=== PATIENT | male | born 1990 | race Caucasian/White ===

== ENCOUNTER 2017-06-13 12:58 | Emergency (ER) | payer SELFPAY ==
[2017-06-13] MEDS ORDERED: HYDROmorphone 1 MG/ML Syringe IM ONE (13:30)
[2017-06-13] MEDS ORDERED: Ondansetron 4 MG Tab.DIS PO ONE (13:30)
--- NOTE | 2017-06-13 13:46 | EDM.PDOC ---
ED HPI GENERAL MEDICAL PROBLEM - General Chief Complaint: Burn Stated Complaint: PT IS BEING SEEN FOR FROSTBITE Time Seen by Provider: 06/13/17 13:00 Source of Information: Reports: Patient History Limitations: Reports: No Limitations - History of Present Illness INITIAL COMMENTS - FREE TEXT/NARRATIVE: History of present illness: []Patient was walking in the snow in socks last night for approximately 20 minutes. Today he has developed blisters on the bottoms and tops of his feet. Review of systems: As per history of present illness and below otherwise all systems reviewed and negative. Past medical history: As per history of present illness and as reviewed below otherwise noncontributory. Surgical history: As per history of present illness and as reviewed below otherwise noncontributory. Social history: No reported history of drug or alcohol abuse. Family history: As per history of present illness and as reviewed below otherwise noncontributory. Physical exam: General: Well developed, well nourished in NAD HEENT: Atraumatic, normocephalic, pupils reactive, negative for conjunctival pallor or scleral icterus, mucous membranes moist, throat clear, neck supple, nontender, trachea midline. Lungs: Clear to auscultation, breath sounds equal bilaterally, chest nontender. Heart: S1S2, regular, negative for clicks, rubs, or JVD. Abdomen: Soft, nondistended, nontender. Negative for masses or hepatosplenomegaly. Negative for costovertebral tenderness. Pelvis: Stable nontender. Genitourinary: Deferred. Rectal: Deferred. Extremities: Bilateral feet have large intact blisters on the plantar surfaces. the right foot has a large dorsal blister and blisters on the fourth and fifth toe, the left foot has a strong the second toe. Distal capillary refill intact. Sensations intact.Neurovascular unremarkable. Neuro: Awake, alert, oriented. Cranial nerves II through XII unremarkable. Cerebellum unremarkable. Motor and sensory unremarkable throughout. Exam nonfocal. Diagnostics: [] Therapeutics: []Dilaudid and Zofran IM Impression: []Frostnip bilateral feet Plan: []Consulted Dr. Damian or the phone and she will Follow-up with a shunt in 2 weeks, keep it clean with soap and water and dry and covered with dry gauze. Definitive disposition and diagnosis as appropriate pending reevaluation and review of above. bilateral feet Pain Score (Numeric/FACES): 10 - Related Data Allergies Allergy/AdvReac Type Severity Reaction Status Date / Time No Known Allergies Allergy Verified 06/13/17 13:08 Home Meds: Home Meds traMADol HCl [Tramadol HCl] 50 mg PO Q6H PRN #30 tablet 06/13/17 [Rx] Past Medical History HEENT History: Reports: None Cardiovascular History: Reports: None Respiratory History: Reports: None Gastrointestinal History: Reports: None Genitourinary History: Reports: None Musculoskeletal History: Reports: None Neurological History: Reports: None Psychiatric History: Reports: None Endocrine/Metabolic History: Reports: None Hematologic History: Reports: None Immunologic History: Reports: None Oncologic (Cancer) History: Reports: None Dermatologic History: Reports: None - Past Surgical History Head Surgeries/Procedures: Reports: None HEENT Surgical History: Reports: None Cardiovascular Surgical History: Reports: None Respiratory Surgical History: Reports: None GI Surgical History: Reports: None Male Surgical History: Reports: None Endocrine Surgical History: Reports: None Neurological Surgical History: Reports: None Musculoskeletal Surgical History: Reports: Other (See Below) Other Musculoskeletal Surgeries/Procedures:: right leg, right ribs removed Oncologic Surgical History: Reports: None Dermatological Surgical History: Reports: None Social & Family History - Family History Family Medical History: Noncontributory - Tobacco Use Smoking Status *Q: Current Every Day Smoker Years of Tobacco use: 5 Packs/Tins Daily: 0.1 - Caffeine Use Caffeine Use: Reports: None - Recreational Drug Use Recreational Drug Use: No Review of Systems - Review of Systems Review Of Systems: See Below (History of present illness) ED EXAM, GENERAL - Physical Exam Exam: See Below (See history of present illness) Course - Vital Signs Last Recorded V/S: Last Vital Signs Temp 98.6 F 06/13/17 13:08 Pulse 115 H 06/13/17 13:08 Resp 18 06/13/17 13:08 BP 149/86 H 06/13/17 13:08 Pulse Ox 94 L 06/13/17 13:08 - Orders/Labs/Meds Meds: Medications Discontinued Medications Generic Name Dose Route Start Last Admin Trade Name Freq PRN Reason Stop Dose Admin Hydromorphone HCl 1 mg 06/13/17 13:30 06/13/17 13:38 Dilaudid IM 06/13/17 13:31 1 mg ONETIME ONE Administration Ondansetron HCl 4 mg 06/13/17 13:30 06/13/17 13:38 Zofran Odt PO 06/13/17 13:31 4 mg ONETIME ONE Administration Departure - Departure Time of Disposition: 13:46 Disposition: Home, Self-Care 01 Condition: Good Clinical Impression: Frostnip Qualifiers: Encounter type: initial encounter Qualified Code(s): T33.90XA - Superficial frostbite of unspecified sites, initial encounter - Discharge Information Prescriptions: traMADol HCl [Tramadol HCl] 50 mg PO Q6H PRN #30 tablet PRN Reason: Pain Referrals: PCP,None [Primary Care Provider] - Yris Damian MD [Physician] - 2 Weeks Forms: ED Department Discharge Additional Instructions: The following information is given to patients seen in the emergency department who are being discharged to home. This information is to outline your options for follow-up care. We provide all patients seen in our emergency department with a follow-up referral. The need for follow-up, as well as the timing and circumstances, are variable depending upon the specifics of your emergency department visit. If you don't have a primary care physician on staff, we will provide you with a referral. We always advise you to contact your personal physician following an emergency department visit to inform them of the circumstance of the visit and for follow-up with them and/or the need for any referrals to a consulting specialist. The emergency department will also refer you to a specialist when appropriate. This referral assures that you have the opportunity for follow-up care with a specialist. All of these measure are taken in an effort to provide you with optimal care, which includes your follow-up. Under all circumstances we always encourage you to contact your private physician who remains a resource for coordinating your care. When calling for follow-up care, please make the office aware that this follow-up is from your recent emergency room visit. If for any reason you are refused follow-up, please contact the [facility] Emergency Department at and asked to speak to the emergency department charge nurse. Keep clean with soap and water and dry. If any symptoms worsen follow-up with Dr. Damian in 2 weeks. At all for pain as directed.
[2017-06-13] MEDS ORDERED: Morphine 10 MG/ML Syringe IVPUSH ONE (14:30)
[2017-06-13] MEDS ORDERED: Morphine 10 MG/ML Syringe IM ONE (14:31)
== END 2017-06-13 15:15 | disposition home or self-care (01) ==
LOC: MW.ED 12:58
DX: T33.821A Superficial frostbite of right foot, initial encounter (principal); T33.822A Superficial frostbite of left foot, initial encounter; F17.210 Nicotine dependence, cigarettes, uncomplicated; X31.XXXA Exposure to excessive natural cold, initial encounter
CPT/HCPCS: 96372; 99283; A9270; J1170; J2270

== ENCOUNTER 2025-03-10 05:58 | Emergency (ER) | payer SELFPAY ==
[2025-03-10 06:38] LABS: BASOPHILS ABSOLUTE AUTO 0.07 K/uL (0.00-0.20); BASOPHILS PERCENT AUTO 1.1 % (0.0-1.0); EOSINOPHILS ABSOLUTE AUTO 0.38 K/uL (0.00-0.45); EOSINOPHILS PERCENT AUTO 6.0 % (0.0-6.0); IMMATURE GRAN ABSOLUTE AUTO 0.01 K/uL (0.00-0.05); IMMATURE GRAN PERCENT AUTO 0.2 % (0.0-0.4); LYMPHOCYTES ABSOLUTE AUTO 2.36 K/uL (1.00-4.80); LYMPHOCYTES PERCENT AUTO 37.0 % (24.0-44.0); MEAN PLATELET VOLUME 9.0 fL (9.4-12.4); MONOCYTES ABSOLUTE AUTO 0.49 K/uL (0.00-0.80); MONOCYTES PERCENT AUTO 7.7 % (0.0-8.0); NEUTROPHILS ABSOLUTE AUTO 3.06 K/uL (1.80-7.70); NEUTROPHILS PERCENT AUTO 48.0 % (41.0-71.0); NRBC ABSOLUTE 0.00 K/uL (0.00-0.02); NRBC PERCENT 0.0 /100WBC (0.0-0.2); PLATELET COUNT,PLT 273 K/uL (150-400); RED BLOOD CELL COUNT 4.89 M/uL (4.52-5.90); WHITE BLOOD CELL COUNT,WBC 6.37 K/uL (3.9-11.3)
[2025-03-10 06:59] LABS: A/G RATIO 1.2 (0.9-1.6); ALANINE AMINOTRANSFERASE,ALT 35.0 IU/L (14-63); ASPARTATE AMNIOTRANSFERASE,AST 30.0 IU/L (15-37); BILIRUBIN TOTAL 0.5 mg/dL (0.2-1.0); BLOOD UREA NITROGEN,BUN 15.0 mg/dL (7.0-18.0); CARBON DIOXIDE,CO2 28.3 mmol/L (21.0-32.0); CHLORIDE,CL 105.0 mmol/L (98-107); CREATININE 1.0 mg/dL (0.8-1.3); EST CRCL DRUG DOSING (CG) 115.41 mL/min; GLUCOSE RANDOM 81.0 mg/dL (74-106); POTASSIUM,K 3.6 mmol/L (3.5-5.1); PROTEIN TOTAL,TP 7.2 g/dL (6.4-8.2); SODIUM,NA 144.0 mmol/L (136-148)
[2025-03-10 07:00] LABS: ESTIMATED GFR 100.0 mL/min (>60)
[2025-03-10] MEDS ORDERED: Ondansetron 4 MG Tab.DIS PO ONE (07:53)
[2025-03-10] MEDS: Dexamethasone Sod Phos Preservative Free 10 MG/ML Vial IM ONE (08:11)
== END 2025-03-10 08:21 | disposition home or self-care (01) ==
LOC: MW.ED 05:58
DX: M50.123 Cervical disc disorder at C6-C7 level with radiculopathy (principal); F17.200 Nicotine dependence, unspecified, uncomplicated; Z79.899 Other long term (current) drug therapy
CPT/HCPCS: 36415; 70450; 71045; 72125; 73030; 80053; 85025; 93005; 96372; 99284; J1100